=== PATIENT | female | born 1980 | race Caucasian/White ===

== ENCOUNTER 2017-03-04 16:36 | Emergency (ER) | payer MEDICAID ==
[2017-03-04 18:05] VITALS: BP 136/84; PULSE 78; RESP 18; TEMP 98.1; O2SAT 100
--- NOTE | 2017-03-04 18:29 | C.PDOC ---
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) Current Symptoms Are (Timing): Better Severity: Moderate Associated Symptoms: Anxiety, Tingling In Hands Or Face, Musle Spasms In Hands Or Feet Additional History Per: Prior Records Past Medical History Reviewed: Historical Data, Nursing Documentation, Vital Signs Vital Signs: Last Vital Signs Temp 98.1 F 03/04/17 18:03 Pulse 78 03/04/17 18:03 Resp 18 03/04/17 18:03 BP 136/84 03/04/17 18:03 Pulse Ox 100 03/04/17 18:03 - Medical History PMH: Diabetes (diet controlled) Surgical History: Cholecystectomy Family History: States: Unknown Family Hx - Social History Hx Tobacco Use: No Hx Alcohol Use: No Hx Substance Use: No - Immunization History Hx Tetanus Toxoid Vaccination: No Hx Influenza Vaccination: Yes Hx Pneumococcal Vaccination: No Review Of Systems Except As Marked, All Systems Reviewed And Found Negative. Constitutional: Negative for: Fever, Weakness Cardiovascular: Negative for: Chest Pain Respiratory: Positive for: Shortness of Breath (resolved) Gastrointestinal: Negative for: Vomiting, Abdominal Pain Musculoskeletal: Negative for: Neck Pain Skin: Negative for: Rash Neurological: Negative for: Weakness, Seizures, Altered Mental Status Psych: Positive for: Anxiety. Negative for: Psychosis, Suicidal ideation Physical Exam - Physical Exam Appears: Non-toxic, No Acute Distress Skin: Normal Color, Warm, Dry, No Rash Head: Atraumatic, Normacephalic Eye(s): bilateral: Normal Inspection, PERRL, EOMI Neck: Normal ROM, Supple Cardiovascular: Rhythm Regular Respiratory: Normal Breath Sounds, No Accessory Muscle Use Gastrointestinal/Abdominal: Soft, No Tenderness Back: No CVA Tenderness Extremity: Normal ROM, No Pedal Edema, No Calf Tenderness Neurological/Psych: Oriented x3, Normal Speech, Normal Cognition, Normal Motor, Normal Sensation ED Course And Treatment ECG: Interpreted By Me, Viewed By Me ECG Rhythm: Sinus Rhythm, Nonspecific Changes ECG Interpretation: No Acute Changes Rate From EC O2 Sat by Pulse Oximetry: 100 Pulse Ox Interpretation: Normal Progress Note: Pt is now asymptomatic. Pt has been having emotional stress lately with school exams coming up and many chores to do. Reassessment Condition: Improved Disposition Counseled Patient/Family Regarding: Studies Performed, Diagnosis, Need For Followup - Disposition Referrals: Hong Mayer MD [Non-Staff] - Disposition: HOME/ ROUTINE Disposition Time: 18:30 Condition: IMPROVED Additional Instructions: Follow up with your doctor. Return to the ER if you develop worsening of symptoms or if you have any other concerns. Instructions: Panic Attack (ED) - Clinical Impression Clinical Impression: Anxiety attack
--- NOTE | 2017-03-06 01:56 | CARD ---
APPROVED REPORT EKG Measurement Heart [id number] <Conclusion> Normal sinus rhythm Inferior infarct, age undetermined Cannot rule out Anterior infarct, age undetermined Abnormal ECG
== END 2017-03-04 18:37 | disposition home or self-care (01) ==
LOC: C.ER 16:36
DX: F41.9 Anxiety disorder, unspecified (principal)

== ENCOUNTER 2018-04-18 20:51 | Emergency (ER) | payer MEDICAID ==
[2018-04-18] MEDS ORDERED: Albuterol 0.083% Inhal Sol (2.5 mg/3 mL) UD IH STA ×2 (21:17→22:01)
[2018-04-18] MEDS ORDERED: Albuterol 0.083% Inhal Sol (2.5 mg/3 mL) UD ONE ×2 (21:26→22:18)
--- NOTE | 2018-04-18 22:15 | C.PDOC ---
History Of Present Illness 37 year old female brought to the ER via EMS for evaluation of SOB after being exposed to second hand smoke outdoors at her home [employer]. Patient states she also has associated lightheadedness. Patient has h/o asthma, has been using her albuterol inhaler without relief. She denies chest pain, palpitations, nausea , , vomiting, fever. PMHx of asthma, DM II, and HTN. Time Seen by Provider: 04/18/18 20:55 Chief Complaint (Nursing): Shortness Of Breath History Per: Patient History/Exam Limitations: no limitations Onset/Duration Of Symptoms: Hrs Current Symptoms Are (Timing): Still Present Initiating Event: Exposure To Smoke Current Respiratory Medications: Albuterol Severity: Mild Associated Symptoms: Light-headedness Recent travel outside of the [place]: No Past Medical History Reviewed: Historical Data, Nursing Documentation, Vital Signs Vital Signs: Last Vital Signs Temp 98.0 F 04/18/18 23:10 Pulse 77 04/18/18 23:10 Resp 18 04/18/18 23:10 BP 113/79 04/18/18 23:10 Pulse Ox 99 04/18/18 23:10 - Medical History PMH: Asthma, Diabetes (diet controlled) Surgical History: Cholecystectomy Family History: States: No Known Family Hx - Social History Hx Tobacco Use: No Hx Alcohol Use: No Hx Substance Use: No - Immunization History Hx Tetanus Toxoid Vaccination: No Hx Influenza Vaccination: Yes Hx Pneumococcal Vaccination: No Review Of Systems Constitutional: Negative for: Fever, Chills Cardiovascular: Positive for: Light Headedness. Negative for: Chest Pain Respiratory: Positive for: Shortness of Breath. Negative for: Cough Gastrointestinal: Negative for: Nausea, Vomiting, Abdominal Pain Skin: Negative for: Rash Physical Exam - Physical Exam Appears: Well, Non-toxic, Other (Speaking in full sentences) Skin: Normal Color, Warm, Dry Head: Normacephalic Eye(s): bilateral: Normal Inspection Oral Mucosa: Moist Neck: Supple Cardiovascular: Rhythm Regular Respiratory: No Accessory Muscle Use, No Rales, No Rhonchi, Wheezing (Mild scattered expiratory wheezing ) Gastrointestinal/Abdominal: Normal Exam, Bowel Sounds, Soft, No Tenderness Extremity: No Pedal Edema, No Calf Tenderness Neurological/Psych: Oriented x3 ED Course And Treatment O2 Sat by Pulse Oximetry: 100 (Room air) Pulse Ox Interpretation: Normal Progress Note: Patient given PO Prednisone and albuterol treatments. Accucheck ordered and reviewed. Reevaluation Time: 23:10 Reassessment Condition: Improved (Patient reassessed, is resting comfortably, states she feels better. On exam, she has good air entry B/L without wheezing or accessory muscle use. Patient is comfortable being discharged home, was given Rxs for prednisone and albuterol inhaler. She was instructed to follow with PMD/clinic in 1-2 days, and understands she should return to ED if symptoms worsen.) Disposition Counseled Patient/Family Regarding: Studies Performed, Diagnosis, Need For Followup - Disposition Referrals: Hong Mayer MD [Non-Staff] - Disposition: HOME/ ROUTINE Disposition Time: 23:10 Condition: STABLE Additional Instructions: FOLLOW UP WITH YOUR DOCTOR IN 1-2 DAYS USE MEDICATIONS DIRECTED RETURN TO ER IF SYMPTOMS WORSEN/RETURN Prescriptions: Albuterol HFA [Ventolin HFA 90 mcg/actuation (8 g)] 0.09 mg IH Q4 PRN #1 puff PRN Reason: Wheezing predniSONE [predniSONE Tab] 40 mg PO DAILY #6 tab Instructions: Asthma, Adult (DC) Forms: [employer] ([place]se) Print Language: SCOTTISH - POA Present On Arrival: None - Clinical Impression Clinical Impression: Asthma exacerbation - Scribe Statement The provider has reviewed the documentation as recorded by the Scribpetrona Goddard All medical record entries made by the Scribe were at my direction and personally dictated by me. I have reviewed the chart and agree that the record accurately reflects my personal performance of the history, physical exam, medical decision making, and the department course for this patient. I have also personally directed, reviewed, and agree with the discharge instructions and disposition.
[2018-04-18 23:10] VITALS: BP 113/79; PULSE 77; RESP 18; TEMP 98
[2018-04-20 02:42] VITALS: O2SAT 100
== END 2018-04-18 23:13 | disposition home or self-care (01) ==
LOC: C.ER 20:51
DX: J45.901 Unspecified asthma with (acute) exacerbation (principal)